=== PATIENT | female | born 1940 | race Caucasian/White ===

== ENCOUNTER 2022-11-22 18:40 | Inpatient (IN) | payer MEDICARE, SELFPAY ==
--- NOTE | ~2022-11-22 | XR_ITS ---
EXAMINATION: XR chest 2V DATE: 11/22/2022 19:16 INDICATION: Weakness and cough TECHNIQUE: AP and lateral views of the chest are obtained. COMPARISON: None available FINDINGS: There is a masslike opacity of the right upper lobe. No pleural effusion or pneumothorax. T he heart size is normal. There appears to be right paratracheal and right hilar lymphadenopathy. Ther e is moderate thoracic spondylosis. IMPRESSION: 1. Masslike opacity of the right upper lobe which could reflect malignancy or pneumonia. Further eval uation with CT of the chest is recommended. 2. Possible right hilar and paratracheal lymphadenopathy. Reviewed, dictated and finalized at location F. IMPRESSION: 1. Masslike opacity of the right upper lobe which could reflect malignancy or p neumonia. Further evaluation with CT of the chest is recommended. 2. Possible right hilar and paratracheal lymphadenopathy.
--- NOTE | ~2022-11-22 | CT_ITS ---
EXAMINATION: CT diagnostic chest w con DATE: 11/22/2022 20:34 INDICATION: Lung mass, difficulty swallowing TECHNIQUE: Transaxial computed tomographic images of the chest were obtained after the administration of 75 cc of Omnipaque 350 intravenous contrast. The dose-length product (DLP) was 220.26 mGy-cm. Ite rative reconstruction was used. COMPARISON: None FINDINGS: There is a 3.5 x 3.4 cm right upper lobe mass abutting the mediastinum. There is a right hi lar mass and lymphadenopathy resulting in partial right upper lobe collapse. There is paratracheal an d subcarinal lymphadenopathy. The esophagus is patulous and contains ingested material. There is an i ndeterminant 7 mm nodule of the left lower lobe. The heart size is normal. No pleural effusion or pne umothorax. There are multiple hypoattenuating lesions of the liver, largest of which measures 3 cm in the left hepatic lobe. There appears to be an osseous metastasis in the left aspect of the T12 verte bral body. IMPRESSION: 1. Right hilar and upper lobe masses, consistent with primary bronchogenic carcinoma. 2. Right hilar, right paratracheal, and subcarinal lymphadenopathy, consistent with metastatic diseas e 3. Multiple liver metastasis and probable metastasis of the T12 vertebral body. 4. Patulous esophagus filled with ingested material. Reviewed, dictated and finalized at location F. IMPRESSION: 1. Right hilar and upper lobe masses, consistent with primary bronchogenic carc inoma. 2. Right hilar, right paratracheal, and subcarinal lymphadenopathy, consistent with metastatic disease 3. Multiple liver metastasis and probable metastasis of the T12 vertebral body. 4. Patulous esophagus filled with ingested material.
[2022-11-22 18:31] VITALS: BP 115/69; PULSE 100; RESP 20; TEMP 36.7; O2SAT 94
--- NOTE | 2022-11-22 18:45 | ECG_ITS ---
Measurements Intervals [place] Rate: 88 P: 39 UT: 158 QRS: 18 QRSD: 91 T: 50 QT: 387 QTc: 470 Interpretive Statements SINUS RHYTHM NONSPECIFIC T-WAVE ABNORMALITY ABNORMAL ECG NO PREVIOUS ECG AVAILABLE FOR COMPARISON Electronically Signed On 11-23-2022 12:37:13 CDT by Fortunato Sunshine M.D.
[2022-11-22 18:55] LABS: Basophils Absolute Auto 0.1 K/mm3 (0.0-0.1); Basophils Percent Auto 0.2 % (0.2-1.2); Hematocrit 43.2 % (37.0-47.0); Hemoglobin 13.9 g/dL (12.0-15.0); Immature Granulocyte Absolute 0.68 K/mm3 (0.00-0.031); Immature Granulocyte Percent A 3.2 % (0-0.5); Lymphocytes Absolute Auto 1.76 K/mm3 (0.9-3.2); Lymphocytes Percent Auto 8.3 % (18.3-44.2); Mean Corpuscular HGB Conc 32.2 g/dl (32-36); Mean Corpuscular Hemoglobin 27.5 pg (26-34); Mean Corpuscular Volume 85.5 fl (80-100); Mean Platelet Volume 10.9 fl (7.4-10.4); Monocytes Absolute Auto 1.2 K/mm3 (0.1-0.6); Monocytes Percent Auto 5.6 % (2.6-8.5); Neutrophils Absolute Auto 17.6 K/mm3 (1.3-6.7); Neutrophils Percent Auto 82.7 % (45.5-73.1); Nucleated Red Blood Cells Perc 0.1 % (0.0-0.2); Platelet Count Result 213 k/mm3 (150-375); Red Blood Count 5.05 M/mm3 (4.2-5.4); Red Cell Distribution Width 15.9 % (11.5-14.5); White Blood Count 21.3 K/mm3 (4.5-10.0)
[2022-11-22 19:04] LABS: Alanine Aminotransferase 31 U/L (6-35); Albumin Level 3.9 g/dL (3.5-5.1); Alkaline Phosphatase 248 U/L (38-126); Anion Gap 10 mmol/L (8-16); Aspartate Amino Transferase 102 U/L (14-36); Bilirubin,Total 1.2 mg/dL (0.2-1.3); Blood Urea Nitrogen 37 mg/dL (7-17); Calcium 9.4 mg/dL (8.4-10.2); Carbon Dioxide 29 mmol/L (22-30); Chloride 97 mmol/L (98-107); Estimated CRCL calculation 41 ml/min; Estimated Glomerular Filt Rate 60; Glucose 147 mg/dL (65-110); Potassium 3.4 mmol/L (3.4-5.0); Sodium 136 mmol/L (137-145)
[2022-11-22 19:33] VITALS: BP 130/67; PULSE 86; RESP 24; TEMP 36.6; O2SAT 95
--- NOTE | 2022-11-22 19:49 | PC.NURSE ---
Daughter refusing straight catheter for mother at 1940, said that her mother needed fluids and then would use the bed [place].
[2022-11-22] MEDS: SODIUM CHLORIDE 0.9% IV 2,000 ML 999 ML IV CONT (20:01)
[2022-11-22] MEDS: FAMOTIDINE 20 MG/2 ML VIAL IV PUSH (20:01)
[2022-11-22 20:02] LABS: Lactic Acid Reflex 1.6 mmol/L (0.7-2.0)
--- NOTE | 2022-11-22 20:08 | PC.NURSE ---
Patient stated she would like to wait till fluids are done so she can try to pee before staff straight caths her.
[2022-11-22 20:18] LABS: Glucose Point of Care 118 mg/dl (65-105)
[2022-11-22 20:25] LABS: Influenza A QL RT-PCR Negative (Negative); Influenza B QL RT-PCR Negative (Negative); RSV RNA, RT-PCR Negative (Negative); SARS-CoV-2 RNA PCR Negative (Negative)
[2022-11-22 20:47] VITALS: BP 121/71; PULSE 88; RESP 23; O2SAT 99
[2022-11-22 21:03] LABS: Creatine Kinase 51 U/L (30-135)
[2022-11-22 21:06] LABS: Lipase 1186 U/L (23-300); Magnesium 1.8 mg/dL (1.6-2.3); Phosphorus 2.3 mg/dL (2.5-4.5)
[2022-11-22 21:17] LABS: NT Pro B Type Natriuretic Pept 290 pg/mL (19.9-100); Troponin I < 0.012 ng/mL (0.000-0.034)
--- NOTE | 2022-11-22 21:25 | ED.GENADULT ---
HPI - General Adult General Chief complaint: Weakness Stated complaint: increased weakness/vomiting Time Seen by Provider: 11/22/22 19:02 History of Present Illness HPI narrative: This is an 82-year-old female presenting ED with chief complaint of weakness and difficulty swallowing. Over the last 2-3 weeks patient has been unable to tolerate solids. She will immediately vomit after eating them. She has been able to had some soups and water although that is becoming progressively more difficult. She has gotten progressively weaker and today was unable to get up off of the toilet. She denies fever chills chest pain, abdominal pain or diarrhea. Related Data Home Medications Medication Instructions Recorded Confirmed Glucosamine 05/23/19 celecoxib 200 mg capsule (Celebrex) 200 mg PO DAILY 05/23/19 05/23/19 indapamide 2.5 mg tablet 2.5 mg PO DAILY 05/23/19 05/23/19 potassium chloride 20 mEq 20 meq PO DAILY 05/23/19 05/23/19 tablet,extended release propranolol 80 mg capsule,24 80 mg PO DAILY 05/23/19 05/23/19 hr,extended release sertraline 50 mg tablet 50 mg PO DAILY 05/23/19 05/23/19 Allergies Allergy/AdvReac Type Severity Reaction Status Date / Time levofloxacin Allergy Unknown heart Verified 11/22/22 18:43 racing, palpitations amoxicillin AdvReac Unknown abdominal Verified 11/22/22 18:43 pain, diarrhea clavulanic acid AdvReac Unknown Nausea and Verified 11/22/22 18:43 Vomiting erythromycin base AdvReac Unknown Abdominal Verified 11/22/22 18:43 pain ERYTHROMYCINS AdvReac Mild Abdominal Uncoded 11/22/22 18:43 Pain PMFSH Past Medical History Medical History (Updated 11/22/22 @ 21:40 by Faisal Smith MD) Anxiety Arthritis Asthma COPD (chronic obstructive pulmonary disease) GERD (gastroesophageal reflux disease) Hepatitis HLD (hyperlipidemia) HTN (hypertension) Osteoarthritis Peripheral neuropathy Rheumatoid arthritis Seasonal allergies Surgical History Surgical History H/O section H/O thyroidectomy partial Family History Family History Other Cerebrovascular accident Depression Diabetes mellitus Family history of allergic disorder Family history of cardiovascular disease Family history of kidney disease Family history of lymphoma Hypertension Social History Social History Smoking status: Former smoker Smoking end date: 06/17/00 Alcohol intake: never Exam Narrative: APPEARANCE: No apparent distress. Head: atraumatic. EYES: EOMI, NOSE: Atraumatic NECK: Trachea midline RESPIRATORY: No increased rate of breathing, clear to auscultation CARDIOVASCULAR: RRR, ABDOMINAL: Non-distended, soft nontender no guarding rebound MUSCULOSKELETAl: No obvious deformities NEURO: Alert. Moving 4/4 extremities SKIN:: Warm, dry. Normal color PSYCHIATRIC: Normal affect Course Vital Signs Vital signs: Vital Signs Temperature 98.1 F 11/22/22 18:31 Pulse Rate 100 11/22/22 18:31 Respiratory Rate 20 11/22/22 18:31 Blood Pressure 115/69 11/22/22 18:31 Pulse Oximetry 94 11/22/22 18:31 Oxygen Delivery Room Air 11/22/22 18:31 Temperature 97.8 F 11/22/22 19:33 Pulse Rate 88 11/22/22 20:47 Respiratory Rate 23 H 11/22/22 20:47 Blood Pressure 121/71 11/22/22 20:47 Pulse Oximetry 99 11/22/22 20:47 Oxygen Delivery Room Air 11/22/22 18:31 Medical Decision Making [facility] Narrative Medical decision making narrative: -Presentation: 82-year-old female presenting with weakness and difficulty swallowing. -DDX includes but is not limited to: Esophageal stricture, hiatal hernia, neoplasm, motility problems -Co-morbidities complicating care: hiatal hernia, chronic pain, GERD, hypertension, anxiety -Social determinants of health: lucie
--- NOTE | 2022-11-22 21:48 | PC.NURSE ---
Patient still refusing straight catheter and still denies having any urgency to urinate at the moment
[2022-11-22] MEDS: LACTATED RINGERS 1,000 ML 125 ML IV CONT (22:07)
[2022-11-22 22:35] VITALS: BP 138/71; PULSE 89; RESP 24; TEMP 36.9; O2SAT 99
--- NOTE | 2022-11-22 22:45 | PM.IMHP ---
H&P: HPI History of Present Illness Date/Time: 11/22/22 22:45 Chief Complaint: Difficulty eating for the last 2 weeks Narrative: 82-year-old female with a past medical history of mixed connective tissue disorder, degenerative disc disease, GERD and anxiety who presented to the ER from home via EMS due to difficulty eating and progressive weakness. The patient is a good historian and provides most of the history herself. But her daughter and granddaughter are at bedside and helps provide history with the patient's permission. The patient has had progressive weakness since July. She blames her weakness on a sinus infection that she had at that time. She has had a slow persistent cough since that time that may have worsened more recently. She reports that she has had a long history of GERD and thought that she had a diagnosis of prior hiatal hernia. She has never had an EGD previously. However over the last 2-3 weeks she has been having and sensation of her esophagus being full of food. She will eat and then shortly thereafter vomit the material back up. She said once she vomits clear to foamy material she will feel better. She has gotten progressively more weak specially since she has not been able to eat. Her daughter has not been able to weigh the patient but states that her mother's night gowns are much looser on her frame. The patient has noticed more lax skin and redundant skin from her arms. She denies any constipation or black tarry stools. She is a former smoker but quit smoking at the age of 41. She denies any fevers or chills since July. She denies any chest pain or increasing shortness of breath. She does have some dependent edema of her ankles that comes and goes but is unchanged from her baseline for the last several years. She denies any chest pain. She has had worsening of her chronic back pain at mostly in the upper back between her shoulder blades. She had a CT of the chest with contrast performed in the ER which demonstrates new right hilar and right upper lobe masses consistent with primary bronchogenic carcinoma, right hilar, right paratracheal and subcarinal lymphadenopathy consistent with metastatic disease. Multiple liver metastases and probable metastases to the T12 vertebrae. Patient denies any increased pain in her mid to lower thoracic spine. A CT also demonstrated a patulous esophagus filled with ingested material. The patient reports that she has been having difficulty even trying to keep cream of mushroom soup down. She does not seem to have as much trouble keeping some clear liquids such as water down. She denies any chest pain or significant shortness of breath. She has tried some cough drops for her cough symptoms with little relief. She reports that some of her weakness is likely due to being less active due to her chronic pain from her mixed connective tissue disorder and DJD. But she feels that most of her weakness is due to not eating and drinking. Review of Systems Review of Systems: 12 systems were reviewed with pertinent positives and negatives per HPI. Except as documented in the HPI, all other systems were reviewed and are negative. [facility] Past Medical History Medical History (Updated 11/23/22 @ 01:41 by Marilee Alvarez DO) Anxiety Arthritis Asthma COPD (chronic obstructive pulmonary disease) Not officially diagnosed GERD (gastroesophageal reflux disease) Hepatitis The patient thinks that she had hepatitis a twice at a younger age HLD (hyperlipidemia) HTN (hypertension) Osteoarthritis Osteoporosis Peripheral neuropathy Due to cervical stenosis Rheumatoid arthritis Seasonal allergies Urinary incontinence, mixed Surgical History Surgical History (Updated 11/23/22 @ 01:28 by Marilee Alvarez DO) H/O cervical spine surgery H/O section H/O thyroidectomy partial Status post cataract extraction of both eyes with insertion of intraocular lens Family His
--- NOTE | 2022-11-22 23:00 | ADMGEN ---
This patient, Sydney Wise, was admitted to [facility] Surg Room 325-02. Patient/family oriented to hospital policies and general routines including ID bracelet, bed and alarms, visiting hours, pain management, procedures, bathroom and other care routines, personal items, smoking policy, room service/diet, and visiting hours. Information on how to activate the Rapid Response Team has been discussed. Patient/Family are encouraged to report perceived risks to care and to ask questions if they do not understand what they are told or what they should do.
[2022-11-22 23:40] VITALS: BMI 32.9
[2022-11-22 23:58] LABS: Troponin I < 0.012 ng/mL (0.000-0.034)
[2022-11-23 00:28] LABS: Thyroid Stimulating Hormone Reflex 0.613 uIU/mL (0.465-4.68)
[2022-11-23 00:45] LABS: Appearance Urine Cloudy (Clear); Bacteria Urine 4+ /hpf; Bilirubin Urine Negative (Negative); Blood Urine Negative (Negative); Color Urine Yellow (Yellow); Glucose Urine UA Negative (Negative); Hyaline Casts Urine Present /lpf; Ketones Urine Trace mg/dL (Negative); Leukocyte Esterase Ur 1+ LEU/UL (Negative); Mucus Urine Present /lpf; Nitrate Urine Positive (Negative); Protein Urine 1+ mg/dL (Negative); RBC Urine 0-2 /hpf (0-2); Squamous Epithelial Cell Urine Occasional /hpf (Few); WBC Urine 21-50 /hpf; pH Urine 5.5 (5.0-9.0)
[2022-11-23 00:46] LABS: Add Urine Microscopic? YES; Specific Grav Ur 1.057 (1.001-1.035)
[2022-11-23 01:36] VITALS: BP 141/67; PULSE 87; RESP 16; TEMP 36.1; O2SAT 97
[2022-11-23] MEDS: CEFEPIME 2 GM/NS 50 ML 2 GM/50 ML BAG IVPB ×2 (02:05→12:59)
[2022-11-23] MEDS: metroNIDAZOLE 500 MG/ISO 100ML 500 MG/100 ML BAG 100 MG IVPB ×5 (02:12→23:25)
[2022-11-23 06:00] VITALS: BP 127/56; PULSE 86; RESP 20; TEMP 35.9; O2SAT 97
[2022-11-23] MEDS: LACTATED RINGERS 1,000 ML 125 ML IV CONT ×2 (06:10→19:01)
[2022-11-23 06:14] LABS: Basophils Percent Auto 0.2 % (0.2-1.2); Hematocrit 40.6 % (37.0-47.0); Hemoglobin 12.7 g/dL (12.0-15.0); Immature Granulocyte Absolute 0.64 K/mm3 (0.00-0.031); Immature Granulocyte Percent A 3.2 % (0-0.5); Lymphocytes Absolute Auto 1.53 K/mm3 (0.9-3.2); Lymphocytes Percent Auto 7.7 % (18.3-44.2); Mean Corpuscular HGB Conc 31.3 g/dl (32-36); Mean Corpuscular Hemoglobin 27.5 pg (26-34); Mean Corpuscular Volume 87.9 fl (80-100); Mean Platelet Volume 10.8 fl (7.4-10.4); Monocytes Absolute Auto 0.9 K/mm3 (0.1-0.6); Monocytes Percent Auto 4.5 % (2.6-8.5); Neutrophils Absolute Auto 16.8 K/mm3 (1.3-6.7); Neutrophils Percent Auto 84.4 % (45.5-73.1); Platelet Count Result 215 k/mm3 (150-375); Red Blood Count 4.62 M/mm3 (4.2-5.4); Red Cell Distribution Width 15.9 % (11.5-14.5); White Blood Count 19.9 K/mm3 (4.5-10.0)
[2022-11-23 06:28] LABS: Anion Gap 8 mmol/L (8-16); Blood Urea Nitrogen 27 mg/dL (7-17); Calcium 8.6 mg/dL (8.4-10.2); Carbon Dioxide 30 mmol/L (22-30); Chloride 99 mmol/L (98-107); Estimated CRCL calculation 60 ml/min; Estimated Glomerular Filt Rate > 60; Glucose 97 mg/dL (65-110); Sodium 137 mmol/L (137-145)
[2022-11-23] MEDS: HEPARIN SODIUM 5,000 UNITS/ML VIAL 5000 UNITS SUB-Q ×2 (08:55→21:37)
[2022-11-23] MEDS: FAMOTIDINE 20 MG/2 ML VIAL IV PUSH ×2 (08:55→21:37)
[2022-11-23 09:09] VITALS: O2SAT 94
--- NOTE | 2022-11-23 11:57 | PM.IMPN ---
Progress Note: A&P Assessment and Plan (1) Metastatic cancer: Qualifiers: Area of secondary neoplastic involvement: digestive structure Digestive structure secondary neoplasm location: metastatic to liver Qualified Code(s): C78.7 - Secondary malignant neoplasm of liver and intrahepatic bile duct Code(s): C79.9 - Secondary malignant neoplasm of unspecified site Status: Acute Assessment and Plan: Discussed with patient and daughter. Oncology consulted. Patient and daughter would like to talk to Oncology before making a decision. (2) Dysphagia: Qualifiers: Dysphagia type: pharyngoesophageal phase Qualified Code(s): R13.14 - Dysphagia, pharyngoesophageal phase Code(s): R13.10 - Dysphagia, unspecified Status: Acute Assessment and Plan: CT scan showed patulous esophagus filled with food material. Likely from external compression from lymph nodes. Will await for further recommendations from Oncology before proceeding with possible GI consultation (3) Leukocytosis: Qualifiers: Leukocytosis type: leukemoid reaction Qualified Code(s): D72.823 - Leukemoid reaction Code(s): D72.829 - Elevated white blood cell count, unspecified Status: Acute (4) Postobstructive pneumonia: Code(s): J18.9 - Pneumonia, unspecified organism Status: Acute Assessment and Plan: Continue Flagyl and cefepime (5) Bacteriuria with pyuria: Code(s): R82.71 - Bacteriuria; R82.81 - Pyuria Status: Acute Assessment and Plan: Continue Flagyl and cefepime Subjective Date/time seen: 11/23/22 11:57 Interval history: Patient reports pain all over Review of Systems Review of Systems: 12 systems were reviewed with pertinent positives and negatives per HPI. Except as documented in the HPI, all other systems were reviewed and are negative. Exam Narrative: Weight 79.1 kg BMI 32.9 Const: Other: No acute distress, obese, appears younger than stated age HENMT: Other: Dentures in the upper jaw, multiple missing teeth in the lower jaw remainder of dentition is only fair, head is normocephalic atraumatic, mucous membranes are tacky Eyes: Other: Pupils are equal, evidence of prior bilateral cataract extraction with lens replacement, no pallor, no jaundice Neck: Other: No thyromegaly, neck is nontender to palpation, trachea midline Resp: Other: Clear to auscultation anteriorly, decreased breath sounds posteriorly especially at the bases, no increased work of breathing Cardio: Other: Regular rate, regular rhythm, no murmur, 2+ bilateral radial pedal pulses GI: Other: Soft, nontender, nondistended, positive bowel sounds : Other: Incontinent of urine Back/Spine/Pelvis: Other: Marked thoracic kyphosis, loss of cervical lordosis Skin: Other: Mild pallor, non jaundice, no rashes, no petechiae Neuro: Other: Alert oriented x4, speech is clear, no facial asymmetry, no localizing neurologic deficits noted during the course of conversation, patient was able to sit up unassisted in the bed Extrem: Other: No clubbing, cyanosis or edema Psych: Other: Appropriate mood and affect, pleasant and cooperative, judgment and insight intact Objective Data Vital Signs Vital Signs: Vital Signs - 24 hr 11/22/22 18:31 11/22/22 19:33 11/22/22 20:47 Temperature 98.1 F 97.8 F Pulse Rate 100 86 88 Respiratory Rate 20 24 H 23 H Blood Pressure 115/69 130/67 121/71 Pulse Oximetry 94 95 99 Oxygen Delivery Room Air 11/22/22 22:35 11/22/22 23:00 11/23/22 01:36 Temperature 98.5 F 97 F L Pulse Rate 89 87 Respiratory Rate 24 H 16 Blood Pressure 138/71 141/67 H Pulse Oximetry 99 97 Oxygen Delivery Room Air 11/23/22 06:00 11/23/22 09:09 11/23/22 08:50 Temperature 96.7 F L Pulse Rate 86 Respiratory Rate 20 Blood Pressure 127/56 L
[2022-11-23] MEDS: ACIDOPHILUS/BULGARICUS CHEWABLE TABLET 1 TABLET PO ×3 (12:58→21:37)
[2022-11-23 14:00] VITALS: BP 122/54; PULSE 85; RESP 20; TEMP 36; O2SAT 94
[2022-11-23] MEDS: HYDROcodone/acetaminophen (*CRX) 5-325 MG TABLET 1 TAB PO ×2 (15:03→21:39)
--- NOTE | 2022-11-23 16:55 | PDONCCN ---
[facility] - Date of Consult Date/Time: 11/23/22 16:55 Requesting Physician: Marilee Alvarez DO Primary Care Provider: Fortunato Harman, - Consult Narrative Reason for consult: Likely metastatic lung cancer Narrative: Sydney Wise is a 82 year old female with history of smoking but quit 40 years ago along with history of mixed connective tissue disorder, GERD and anxiety presented to the ER with generalized weakness and difficulty swallowing and eating. She has lost 8-10 lb weight in last 4-6 weeks duration. She has been complaining of some mid epigastric region discomfort. She has been getting weaker since July of 2022. She has a history of hiatal hernia. CT scan chest demonstrated new right hilar and right upper lobe mass consistent with primary bronchogenic carcinoma with right hilar, right paratracheal and subcarinal lymphadenopathy and multiple liver metastasis with T12 vertebral body metastasis. She has some cough with some shortness of breath. Denies any hemoptysis. Denies any headache. She denies any other complaint. Review of Systems - Review of Systems All systems reviewed & are unremarkable except as noted in [facility] and [facility] Medical History: Medical History (Last Updated 11/23/22 @ 01:28 by Marilee Alvarez DO) Anxiety Arthritis Asthma COPD (chronic obstructive pulmonary disease) Not officially diagnosed GERD (gastroesophageal reflux disease) Hepatitis The patient thinks that she had hepatitis a twice at a younger age HLD (hyperlipidemia) HTN (hypertension) Osteoarthritis Osteoporosis Peripheral neuropathy Due to cervical stenosis Rheumatoid arthritis Seasonal allergies Urinary incontinence, mixed Surgical History: Surgical History (Last Updated 11/23/22 @ 01:28 by Marilee Alvarez DO) H/O cervical spine surgery H/O section H/O thyroidectomy partial Status post cataract extraction of both eyes with insertion of intraocular lens Family History: Family History (Last Reviewed 11/23/22 @ 01:28 by Marilee Alvarez DO) Other Cerebrovascular accident Depression Diabetes mellitus Family history of allergic disorder Family history of cardiovascular disease Family history of kidney disease Family history of lymphoma Hypertension - Social History Social History: Social History (Last Updated 11/23/22 @ 01:30 by Marilee Alvarez DO) Alcohol Use: Alcohol intake: never Substance Use: Substance use: never Others: Spiritual care concerns: No Smoking Status: Smoking status: Former smoker Smoking end date: 06/17/00 Approximate Smoking End Date: 1979 Social Determinants of Health: Has the Lack of Transportation Kept You From Medical Appointments or From Getting Medications?: No Within the Past 12 Months, Were You Worried Whether Your Food Would Run Out Before You Got Money to Buy More?: Never True What is Your Housing Situation Today?: I Have Housing Are You Worried That in the Next 2 Months, You May Not Have Your Own Housing to Live In?: No Do You Have Trouble Paying Your Heating Or Electricity Bill?: No Do You Have Trouble Paying For Medicines?: No Are You Currently Unemployed and Looking for Work?: No Highest Level of Education Completed: Grade School Do You Have Trouble With Childcare or the Care of a Family Member?: No Exam - Vital Signs Vital Signs - 24 hr 11/22/22 18:31 11/22/22 19:33 11/22/22 20:47 Temperature 36.7 C 36.6 C Pulse Rate 100 86 88 Respiratory Rate 20 24 H 23 H Blood Pressure 115/69 130/67 121/71 Pulse Oximetry 94 95 99 Oxygen Delivery Room Air 11/22/22 22:35 11/22/22 23:00 11/23/22 01:36 Temperature 36.9 C 36.1 C L Pulse Rate 89 87 Respiratory Rate 24 H 16 Blood Pressure 138/71 141/67 H Pulse Oximetry 99 97 Oxygen Delivery Room Air 11/23/22 06:00 11/23/22 09:09 11/23/22 08:50 Temperature 35.9 C L Pulse Rate 86 Respirator
[2022-11-23 20:00] VITALS: PULSE 84; RESP 16; O2SAT 95
[2022-11-23 22:00] VITALS: BP 150/56; PULSE 84; RESP 16; TEMP 36.1; O2SAT 95
--- NOTE | 2022-11-23 22:37 | P.PNCROSS_ITS ---
Event Note Event Note Event Note: Received a call from the patient's nurse. Anaerobic bottle and 1 set of blood c ultures came back growing Gram-positive cocci in clusters. Chart reviewed. She has been started on empiric vancomycin pending identification and sensitivities.
[2022-11-24] MEDS: CEFEPIME 2 GM/NS 50 ML 2 GM/50 ML BAG IVPB (04:11)
[2022-11-24] MEDS: HYDROcodone/acetaminophen (*CRX) 5-325 MG TABLET 1 TAB PO ×4 (04:11→20:57)
[2022-11-24] MEDS: metroNIDAZOLE 500 MG/ISO 100ML 500 MG/100 ML BAG 100 MG IVPB (05:35)
[2022-11-24 06:00] VITALS: BP 160/62; PULSE 91; RESP 20; TEMP 35.7; O2SAT 97
[2022-11-24 06:32] LABS: Estimated CRCL calculation 60 ml/min; Estimated Glomerular Filt Rate > 60
[2022-11-24 06:36] LABS: INR 1.1; Prothrombin Time 14.3 Seconds (11.1-14.7)
[2022-11-24 06:37] LABS: Partial Thromboplastin Time 34.5 SECONDS (22.3-36.8)
[2022-11-24] MEDS: HEPARIN SODIUM 5,000 UNITS/ML VIAL 5000 UNITS SUB-Q (09:09)
[2022-11-24] MEDS: ONDANSETRON INJ 4 MG/2 ML VIAL IV PUSH ×2 (09:09→16:32)
[2022-11-24] MEDS: ACIDOPHILUS/BULGARICUS CHEWABLE TABLET 1 TABLET PO ×4 (09:10→20:57)
[2022-11-24] MEDS: CELECOXIB 200 MG CAPSULE PO ×2 (09:10→16:30)
[2022-11-24] MEDS: FAMOTIDINE 20 MG/2 ML VIAL IV PUSH (09:10)
[2022-11-24] MEDS: SERTRALINE HCL 50 MG TABLET 100 MG PO (09:10)
[2022-11-24] MEDS: ALPRAZolam (*CRX) 0.125 MG TABLET PO (09:10)
[2022-11-24 10:13] VITALS: O2SAT 94
--- NOTE | 2022-11-24 10:23 | PM.IMPN ---
Progress Note: A&P Assessment and Plan (1) Metastatic cancer: Qualifiers: Area of secondary neoplastic involvement: digestive structure Digestive structure secondary neoplasm location: metastatic to liver Qualified Code(s): C78.7 - Secondary malignant neoplasm of liver and intrahepatic bile duct Code(s): C79.9 - Secondary malignant neoplasm of unspecified site Status: Acute Assessment and Plan: Discussed with patient and daughter. Oncology consulted. Patient spoke with Oncology and opted for liver biopsy. I discussed with the patient again this morning extensively and I also to clarify if she wanted to get treatment after the biopsies done. Patient stated she does not want any treatment done. IV treated that in that case biopsies not been to do anything. We had a long discussion about comfort care and the patient opted for comfort care at this point of time. (2) Dysphagia: Qualifiers: Dysphagia type: pharyngoesophageal phase Qualified Code(s): R13.14 - Dysphagia, pharyngoesophageal phase Code(s): R13.10 - Dysphagia, unspecified Status: Acute Assessment and Plan: No further intervention. Patient is comfort care (3) Leukocytosis: Qualifiers: Leukocytosis type: leukemoid reaction Qualified Code(s): D72.823 - Leukemoid reaction Code(s): D72.829 - Elevated white blood cell count, unspecified Status: Acute (4) Postobstructive pneumonia: Code(s): J18.9 - Pneumonia, unspecified organism Status: Acute Assessment and Plan: Discontinue antibiotics (5) Bacteriuria with pyuria: Code(s): R82.71 - Bacteriuria; R82.81 - Pyuria Status: Acute Assessment and Plan: Discontinue antibiotic Subjective Date/time seen: 11/24/22 10:23 Interval history: Patient reports generalized pain but it is better than yesterday Review of Systems Review of Systems: 12 systems were reviewed with pertinent positives and negatives per HPI. Except as documented in the HPI, all other systems were reviewed and are negative. Exam Narrative: Weight 79.1 kg BMI 32.9 Const: Other: No acute distress, obese, appears younger than stated age HENMT: Other: Dentures in the upper jaw, multiple missing teeth in the lower jaw remainder of dentition is only fair, head is normocephalic atraumatic, mucous membranes are tacky Eyes: Other: Pupils are equal, evidence of prior bilateral cataract extraction with lens replacement, no pallor, no jaundice Neck: Other: No thyromegaly, neck is nontender to palpation, trachea midline Resp: Other: Clear to auscultation anteriorly, decreased breath sounds posteriorly especially at the bases, no increased work of breathing Cardio: Other: Regular rate, regular rhythm, no murmur, 2+ bilateral radial pedal pulses GI: Other: Soft, nontender, nondistended, positive bowel sounds : Other: Incontinent of urine Back/Spine/Pelvis: Other: Marked thoracic kyphosis, loss of cervical lordosis Skin: Other: Mild pallor, non jaundice, no rashes, no petechiae Neuro: Other: Alert oriented x4, speech is clear, no facial asymmetry, no localizing neurologic deficits noted during the course of conversation, patient was able to sit up unassisted in the bed Extrem: Other: No clubbing, cyanosis or edema Psych: Other: Appropriate mood and affect, pleasant and cooperative, judgment and insight intact Objective Data Vital Signs Vital Signs: Vital Signs - 24 hr 11/23/22 14:00 11/23/22 22:00 11/23/22 20:00 Temperature 96.8 F L 96.9 F L Pulse Rate 85 84 84 Respiratory Rate 20 16 16 Blood Pressure 122/54 L 150/56 H Pulse Oximetry 94 95 95 Oxygen Delivery Room Air 11/24/22 06:00 11/24/22 07:43 11/24/22 10:13 Temperature 96.3 F L Pulse Rate 91 Respiratory Rate 20 Blood Pressure 160/62 H Pulse Ox
[2022-11-24 14:00] VITALS: BP 132/51; PULSE 58; RESP 16; TEMP 36; O2SAT 96
[2022-11-24] MEDS: HYDROmorphone HCL INJ (*CRX) 1 MG/ML SYR 0.5 MG IV PUSH (16:29)
[2022-11-24 20:00] VITALS: PULSE 58; RESP 16; O2SAT 96
[2022-11-24] MEDS: ALPRAZolam (*CRX) 0.25 MG TABLET PO (20:57)
[2022-11-24] MEDS: DOCUSATE SODIUM 100 MG CAPSULE PO (20:57)
[2022-11-24 22:00] VITALS: BP 149/67; PULSE 97; RESP 18; TEMP 36; O2SAT 92
--- NOTE | 2022-11-24 23:39 | PC.NURSE ---
[address] Alvarez about patient having difficulty swallowing and vomiting PO meds along with uncontrolled pain. New orders received to D/C fatou and start Morphine 2.5mg SL Q4H PRN.
[2022-11-25] MEDS: MORPHINE SULFATE ORAL CONC SOL (*CRX) 10 MG/0.5 ML SYRINGE 2.5 MG PO (03:06)
--- NOTE | 2022-11-25 05:38 | PC.NURSE ---
Spoke with Dr. Alvarez at this time r/t patient stating that the 2.5mg of morphine wasn't helping with the pain at all. New order received to increase to morphine 5mg SL Q4H prn.
[2022-11-25] MEDS: MORPHINE SULFATE ORAL CONC SOL (*CRX) 10 MG/0.5 ML SYRINGE 5 MG PO ×3 (05:51→17:04)
[2022-11-25 06:00] VITALS: BP 145/64; PULSE 124; RESP 20; TEMP 35.7; O2SAT 93
[2022-11-25] MEDS: SERTRALINE HCL 50 MG TABLET 100 MG PO (09:50)
[2022-11-25] MEDS: ALPRAZolam (*CRX) 0.25 MG TABLET PO (09:50)
[2022-11-25] MEDS: ACIDOPHILUS/BULGARICUS CHEWABLE TABLET 1 TABLET PO ×2 (09:50→17:05)
[2022-11-25] MEDS: DOCUSATE SODIUM 100 MG CAPSULE PO ×2 (09:50→20:54)
[2022-11-25] MEDS: CELECOXIB 200 MG CAPSULE PO ×2 (09:50→17:04)
--- NOTE | 2022-11-25 09:50 | PM.IMPN ---
Progress Note: A&P Assessment and Plan (1) Metastatic cancer: Qualifiers: Area of secondary neoplastic involvement: digestive structure Digestive structure secondary neoplasm location: metastatic to liver Qualified Code(s): C78.7 - Secondary malignant neoplasm of liver and intrahepatic bile duct Code(s): C79.9 - Secondary malignant neoplasm of unspecified site Status: Acute Assessment and Plan: Discussed with patient and daughter. Oncology consulted. Patient spoke with Oncology and opted for liver biopsy. I discussed with the patient again this morning extensively and I also to clarify if she wanted to get treatment after the biopsies done. Patient stated she does not want any treatment done. IV treated that in that case biopsies not been to do anything. We had a long discussion about comfort care and the patient opted for comfort care at this point of time. (2) Dysphagia: Qualifiers: Dysphagia type: pharyngoesophageal phase Qualified Code(s): R13.14 - Dysphagia, pharyngoesophageal phase Code(s): R13.10 - Dysphagia, unspecified Status: Acute Assessment and Plan: No further intervention. Patient is comfort care (3) Postobstructive pneumonia: Code(s): J18.9 - Pneumonia, unspecified organism Status: Acute Assessment and Plan: Discontinue antibiotics (4) Bacteriuria with pyuria: Code(s): R82.71 - Bacteriuria; R82.81 - Pyuria Status: Acute Assessment and Plan: Discontinue antibiotic Plan Pending placement Subjective Date/time seen: 11/25/22 09:50 Interval history: Stable Review of Systems Review of Systems: 12 systems were reviewed with pertinent positives and negatives per HPI. Except as documented in the HPI, all other systems were reviewed and are negative. Exam Narrative: Weight 79.1 kg BMI 32.9 Const: Other: No acute distress, obese, appears younger than stated age HENMT: Other: Dentures in the upper jaw, multiple missing teeth in the lower jaw remainder of dentition is only fair, head is normocephalic atraumatic, mucous membranes are tacky Eyes: Other: Pupils are equal, evidence of prior bilateral cataract extraction with lens replacement, no pallor, no jaundice Neck: Other: No thyromegaly, neck is nontender to palpation, trachea midline Resp: Other: Clear to auscultation anteriorly, decreased breath sounds posteriorly especially at the bases, no increased work of breathing Cardio: Other: Regular rate, regular rhythm, no murmur, 2+ bilateral radial pedal pulses GI: Other: Soft, nontender, nondistended, positive bowel sounds : Other: Incontinent of urine Back/Spine/Pelvis: Other: Marked thoracic kyphosis, loss of cervical lordosis Skin: Other: Mild pallor, non jaundice, no rashes, no petechiae Neuro: Other: Alert oriented x4, speech is clear, no facial asymmetry, no localizing neurologic deficits noted during the course of conversation, patient was able to sit up unassisted in the bed Extrem: Other: No clubbing, cyanosis or edema Psych: Other: Appropriate mood and affect, pleasant and cooperative, judgment and insight intact Objective Data Vital Signs Vital Signs: Vital Signs - 24 hr 11/24/22 10:13 11/24/22 14:00 11/24/22 20:00 Temperature 96.8 F L Pulse Rate 58 L 58 L Respiratory Rate 16 16 Blood Pressure 132/51 L Pulse Oximetry 94 96 96 Oxygen Delivery Room Air Room Air 11/24/22 22:00 11/25/22 06:00 11/25/22 08:00 Temperature 96.8 F L 96.2 F L Pulse Rate 97 124 H Respiratory Rate 18 20 Blood Pressure 149/67 H 145/64 H Pulse Oximetry 92 93 Oxygen Delivery Room Air Intake/Output Intake/Output: Intake & Output 11/22/22 11/23/22 11/24/22 11/25/22 23:59 23:59 23:59 23:59 Intake Total 2099 3018 / 3018 2021 150 / 150 Output Total 1700 /
[2022-11-25] MEDS: ONDANSETRON INJ 4 MG/2 ML VIAL IV PUSH ×2 (09:51→17:31)
[2022-11-25 14:00] VITALS: BP 132/59; PULSE 120; RESP 20; TEMP 36.3; O2SAT 92
[2022-11-25] MEDS: SODIUM CHLORIDE 0.9% IV 1,000 ML 75 ML IV CONT (17:03)
[2022-11-25] MEDS: MORPHINE SULFATE (*CRX) 30 MG TABCR PO (20:54)
[2022-11-25 21:42] VITALS: BP 149/58; PULSE 109; RESP 14; TEMP 36.1; O2SAT 95
[2022-11-26] MEDS: SODIUM CHLORIDE 0.9% IV 1,000 ML 75 ML IV CONT (04:36)
[2022-11-26 05:49] VITALS: BP 117/63; PULSE 113; RESP 14; TEMP 36.1; O2SAT 91
[2022-11-26] MEDS: MORPHINE SULFATE (*CRX) 30 MG TABCR PO (08:27)
[2022-11-26] MEDS: CELECOXIB 200 MG CAPSULE PO (08:28)
[2022-11-26] MEDS: DOCUSATE SODIUM 100 MG CAPSULE PO (08:35)
[2022-11-26] MEDS: SERTRALINE HCL 50 MG TABLET 100 MG PO (08:35)
--- NOTE | 2022-11-26 10:23 | PM.DS ---
DS: Admitting Diagnosis Discharge Date 11/26/2022 Admitting Diagnosis Lung cancer with metastasis DS: Discharge Diagnosis Discharge Diagnosis (1) Metastatic cancer: Qualifiers: Area of secondary neoplastic involvement: digestive structure Digestive structure secondary neoplasm location: metastatic to liver Qualified Code(s): C78.7 - Secondary malignant neoplasm of liver and intrahepatic bile duct Code(s): C79.9 - Secondary malignant neoplasm of unspecified site Status: Acute (2) Postobstructive pneumonia: Code(s): J18.9 - Pneumonia, unspecified organism Status: Acute DS: Summary Hospital Course Hospital Course: Assessment and Plan (1) Metastatic cancer: ?Qualifiers: ?Area of secondary neoplastic involvement:?digestive structure??Digestive structure secondary neoplasm location:?metastatic to liver? Qualified Code(s):?C78.7 - Secondary malignant neoplasm of liver and intrahepatic bile duct ?Code(s): C79.9 - Secondary malignant neoplasm of unspecified site ?Status:?Acute ?Assessment and Plan: Discussed with patient and daughter.? Oncology consulted.? Patient spoke with Oncology and opted for liver biopsy.? I discussed with the patient again this morning extensively and I also to clarify if she wanted to get treatment after the biopsies done.? Patient stated she does not want any treatment done.? IV treated that in that case biopsies not been to do anything.? We had a long discussion about comfort care and the patient opted for comfort care at this point of time. (2) Dysphagia: ?Qualifiers: ?Dysphagia type:?pharyngoesophageal phase? Qualified Code(s):?R13.14 - Dysphagia, pharyngoesophageal phase ?Code(s): R13.10 - Dysphagia, unspecified ?Status:?Acute ?Assessment and Plan: No further intervention.? Patient is comfort care (3) Postobstructive pneumonia: ?Code(s): J18.9 - Pneumonia, unspecified organism ?Status:?Acute ?Assessment and Plan: Discontinue antibiotics (4) Bacteriuria with pyuria: ?Code(s): R82.71 - Bacteriuria; R82.81 - Pyuria ?Status:?Acute ?Assessment and Plan: Discontinue antibiotic Patient is a comfort care patient. has been discharged home with home hospice Time Spent with Patient Time attestation: Total time spent providing and/or coordinating discharge services: DS: Data Data Completed and Pending Labs on day of discharge: Preliminary micro results at discharge 11/22/22 20:45 Blood Culture - Preliminary Blood Discharge Plan Discharge Consulting providers: Trevor Avila Discharging Clinician: Mateusz Myles Anticipated Discharge Date/Time: 11/26/22 08:18 Patient Disposition: Hospice - Home Activity: no preference Diet: regular Stand Alone Forms: General Discharge Information Follow-up/Referrals: Helder,MD Fortunato [Primary Care Provider] - Discharge Medications: New morphine 30 mg Tablet Extended Release 30 mg PO Q12HR Qty: 30 0RF oxycodone 10 mg tablet 10 mg PO Q4H PRN (Reason: pain) Qty: 20 0RF famotidine-Ca carb-mag hydrox 10-800-165 mg tablet,chewable 1 tablet PO BID PRN (Reason: indigestion) Qty: 30 0RF ondansetron 4 mg tablet,disintegrating 4 mg PO Q8H PRN (Reason: nausea and vomiting) Qty: 20 0RF Continued celecoxib [Celebrex] 200 mg Capsule 200 mg PO DAILY propranolol 80 mg Capsule,Extended Release 24 Hr 80 mg PO DAILY sertraline 50 mg Tablet 100 mg PO DAILY Discontinued indapamide 2.5 mg Tablet 2.5 mg PO DAILY Date of admission: 11/22/22 21:44 Primary Care Provider: HelderFortunato Admitting Provider: Marilee Alvarez Attending physician on admission: Marilee Alvarez Condition: Guarded Prognosis
[2022-11-26] MEDS: MORPHINE SULFATE ORAL CONC SOL (*CRX) 10 MG/0.5 ML SYRINGE 5 MG PO (12:03)
[2022-11-26 14:00] VITALS: BP 115/62; PULSE 110; RESP 14; TEMP 36.2; O2SAT 92
== END 2022-11-26 16:40 | disposition hospice, home (50) | DRG 841 ==
LOC: ANHED 21:40 → ANH3MEDSUR 22:15
PROVIDERS: Internal Medicine Hematology & Oncology; Physician Assistant; Preventive Medicine Aerospace Medicine; Admitting Provider Internal Medicine; Emergency Provider Emergency Medicine; PCP Internal Medicine; Visit Provider Hospitalist
DX: C77.1 Secondary and unspecified malignant neoplasm of intrathoracic lymph nodes (principal); C34.90 Malignant neoplasm of unspecified part of unspecified bronchus or lung; C78.7 Secondary malignant neoplasm of liver and intrahepatic bile duct; C79.51 Secondary malignant neoplasm of bone; R13.14 Dysphagia, pharyngoesophageal phase; R82.71 Bacteriuria; R82.81 Pyuria; Z20.822 Contact with and (suspected) exposure to COVID-19; J44.9 Chronic obstructive pulmonary disease, unspecified; K21.9 Gastro-esophageal reflux disease without esophagitis; D72.829 Elevated white blood cell count, unspecified; M19.90 Unspecified osteoarthritis, unspecified site; M06.9 Rheumatoid arthritis, unspecified; G62.9 Polyneuropathy, unspecified; E78.5 Hyperlipidemia, unspecified; I10 Essential (primary) hypertension; F41.9 Anxiety disorder, unspecified; N39.498 Other specified urinary incontinence; Z87.891 Personal history of nicotine dependence
CPT/HCPCS: 36415; 71046; 71260; 80048; 80053; 81001; 82550; 82565; 82948; 83605; 83690; 83735; 83880; 84100; 84443; 84484; 85025; 85610; 85730; 87040; 87077; 87086; 87147; 87181; 87186; 87637; 93005; 96361; 96374; 96375; 99285; A9270; J0131; J0692; J1170; J1644; J2405; J3370; J7030; J7120; Q9967